=== PATIENT | male | born 1965 | race Caucasian/White ===

== ENCOUNTER 2020-10-11 07:44 | Day surgery (SDC) | payer MEDICARE, OTHER ==
[~2020-10-11 07:44] MED LIST: Midazolam 1 MG/ML 2 ML SDV ONE; Propofol 200 MG/20 ML SDV ONE; fentaNYL 100 MCG/2 ML SDV ONE
[2020-10-11] MEDS: Sodium Chloride 0.9% 1,000 ML IV SCH (08:18)
--- NOTE | 2020-10-11 14:04 | OR ---
DATE OF PROCEDURE: 10/11/2020 SURGEON: Chacho Ortiz MD PROCEDURE: Colonoscopy. FINDINGS: 1. Sigmoid colon polyp #1, approximately 8 mm, completely removed using hot snare wire device. 2. Sigmoid colon polyp #2, approximately 5 mm, completely removed using cold biopsy forceps. 3. Diverticulosis, extensive throughout entire colon, but mostly concentrated in the sigmoid colon. COMPLICATIONS: None. [employer] PIPE LINES: None. RISKS: Risks, benefits, alternatives, and limitations including, but not limited to infection, bleeding, perforation, false positives and false negatives were explained to the patient who wished to proceed. PROCEDURE IN DETAIL: The patient was placed in left lateral decubitus position. Digital rectal exam was performed without abnormality. Scope was introduced and advanced atraumatically to the ileocecal valve. A photo was taken of this. Scope was brought back to the ascending, transverse, descending colon, and retroflexed. The aforementioned polyps were identified and completely removed. No evidence of old or new blood. With respect to the diverticulosis, this would be described as without evidence of bleeding or infection. No abnormalities on retroflexion. Greater than 8 minutes was spent removing the scope. The prep was acceptable. Approximately 90% of the luminal surface could be seen. The patient tolerated the procedure well. Chacho Ortiz MD /[id number]
== END 2020-10-11 10:20 | disposition home or self-care (01) ==
LOC: JP.SDS 07:44
PROVIDERS: ATTEND Surgery
DX: Z12.11 Encounter for screening for malignant neoplasm of colon (principal); K63.5 Polyp of colon; K57.30 Diverticulosis of large intestine without perforation or abscess without bleeding; I10 Essential (primary) hypertension; E11.9 Type 2 diabetes mellitus without complications
CPT/HCPCS: 45380; 45385; 88305; J2250; J2704; J3010; J7030

== ENCOUNTER 2022-05-07 09:52 | Emergency (ER) | payer MEDICARE, OTHER ==
[2022-05-07 11:02] LABS: CORONAVIRUS COVID-19 NAA POSITIVE (NEGATIVE)
== END 2022-05-07 11:14 | disposition home or self-care (01) ==
LOC: JP.ED 09:52
DX: U07.1 COVID-19 (principal); I10 Essential (primary) hypertension; F17.210 Nicotine dependence, cigarettes, uncomplicated; Z79.899 Other long term (current) drug therapy
CPT/HCPCS: 0241U; 87081; 87880; 99284

== ENCOUNTER 2022-09-14 19:01 | Emergency (ER) | payer MEDICARE, SELFPAY ==
[2022-09-14 19:40] LABS: ESTIMATED GFR 89 mL/min (>60)
[2022-09-14 20:27] LABS: CORONAVIRUS COVID-19 NAA NEGATIVE (NEGATIVE)
== END 2022-09-15 07:11 | disposition home or self-care (01) ==
LOC: JP.ED 19:01
DX: F33.2 Major depressive disorder, recurrent severe without psychotic features (principal); R45.851 Suicidal ideations; F10.120 Alcohol abuse with intoxication, uncomplicated; F43.10 Post-traumatic stress disorder, unspecified; I10 Essential (primary) hypertension; Z72.0 Tobacco use; Z79.899 Other long term (current) drug therapy; Z20.822 Contact with and (suspected) exposure to COVID-19; Y90.7 Blood alcohol level of 200-239 mg/100 ml
CPT/HCPCS: 0241U; 36415; 80053; 80143; 80179; 80305; 80307; 81001; 85025; 99284; 99285